=== PATIENT | female | born 1960 | race Caucasian/White ===

== ENCOUNTER 2018-03-18 16:50 | Emergency (ER) | payer OTHER ==
[~2018-03-18] VITALS: Ht 160 cm; Wt 79.8 kg
[~2018-03-18 16:50] MED LIST: ASA81 MG PO; GLUCOVANCE 1.251 TAB PO; HUMALOG100 U/ML SQ; LANTUS100 U/ML SQ; SYNTHROID200 MCG PO; TRAMADOL HCL50 MG PO; VASOTEC20 MG PO; ZOLOFT25 MG PO
== END 2018-03-18 23:41 | disposition home or self-care (01) ==
LOC: ER 16:50
DX: K52.89 Other specified noninfective gastroenteritis and colitis (principal)

== ENCOUNTER 2024-12-25 17:34 | Emergency (ER) | payer OTHER ==
[~2024-12-25] VITALS: Ht 160 cm; Wt 75.7 kg
[2024-12-25] MEDS ORDERED: COZAAR25 MG PO (17:55)
[2024-12-25] MEDS ORDERED: CYMBALTA60 MG PO (17:56)
[2024-12-25] MEDS ORDERED: KETOROLAC TROMETHAMINE 60 MG VIAL IM ONE ×2 (18:30→18:31)
[2024-12-25] MEDS ORDERED: 0.9 % SODIUM CHLORIDE 1,000 ML IV SCH (18:30)
[2024-12-25] MEDS ORDERED: GUAIFEN/DEXTROMETHORPHAN/PE 10 ML BLIST.PACK PO ONE ×2 (18:38→18:45)
[2024-12-25 19:10] LABS: HEMOGLOBIN 11.6 g/dL (12.0-15.00); MEAN CELL VOLUME 94.5 fL (80.00-100.00); MEAN CORPUSCULAR HEMOGLOBIN 31.2 pg (27.00-32.0); PLATELET COUNT 218 K/uL (150-450); RED CELL DISTRIBUTION WIDTH 13.5 % (11.5-14.5)
[2024-12-25 19:38] LABS: CALCIUM 9.6 mg/dL (8.5-10.1); CREATININE SERUM 1.08 mg/dL (0.55-1.02); GFR 50.76; POTASSIUM 4.75 mEq/L (3.5-5.1)
[2024-12-25 20:45] LABS: PH,URINE 6.5 (5.0-8.0); URINE APPEARANCE Clear; URINE BILIRRUBIN Negative (NEGATIVE); URINE BLOOD Negative; URINE COLOR Yellow; URINE KETONE Negative (NEGATIVE); URINE LEUKOCYTE Negative; URINE NITRATE Negative; URINE PROTEIN Trace (NEGATIVE); URINE UROBILINOGEN 0.2 E.U./dl
[2024-12-25 20:49] LABS: URINE BACTERIA 627.8 uL (0.0-1933); URINE EPITHELIAL CELLS 6.9 uL (0.0-38.8); URINE RBC 14.1 uL (0.0-20.8); URINE WBC 6.6 uL (0.0-23.2)
[2024-12-25 21:00] LABS: URINE GLUCOSE 100 MG/DL (NEGATIVE)
[2024-12-25] MEDS ORDERED: LEVALBUTEROL HCL 0.63 MG/3 ML SOLUTION IH ONE (22:15)
== END 2024-12-25 22:24 | disposition home or self-care (01) ==
LOC: ER 17:36
PROVIDERS: Emergency Medicine
DX: N20.9 Urinary calculus, unspecified (principal); R10.9 Unspecified abdominal pain; I10 Essential (primary) hypertension; E11.9 Type 2 diabetes mellitus without complications; Z88.1 Allergy status to other antibiotic agents
CPT/HCPCS: 36415; 74176; 96365; 96366; 96372; 99284; J1885; J7030